=== PATIENT | male | born 1990 | race Caucasian/White ===

== ENCOUNTER 2024-10-17 11:12 | Observation (INO) | payer OTHER ==
[~2024-10-17] VITALS: Ht 172.7 cm; Wt 178.7 kg
[2024-10-17 11:33] VITALS: BP 152/80
[2024-10-17 12:29] LABS: BASO # 0.1 10*3/uL (0.0-0.1); BASO % 0.6 % (0.0-1.0); EOS # 0.4 10*3/uL (0.0-0.4); EOS % 4.7 % (1.0-4.0); MEAN CELL VOLUME 90.5 fl (80.0-94.0); MEAN CORPUSCULAR HGB 28.8 pg (27.0-31.0); MEAN CORPUSCULAR HGB CONC 31.9 g/dl (33.0-37.0); MEAN PLATELET VOLUME 9.4 fl (9.6-12.3); MONO # 0.9 10*3/uL (0.1-1.0); MONO % 9.2 % (3.0-9.0); NEUT # 6.5 10*3/uL (2.3-7.9); NEUT % 69.6 % (47.0-73.0); PLATELET COUNT AUTOMATED 220 10*3/uL (130-400); RED BLOOD COUNT 4.75 10*6/uL (4.50-5.90); RED CELL DISTRI WIDTH 12.6 % (0-14.5); WHITE BLOOD COUNT 9.4 10*3/uL (4.8-10.8)
[2024-10-17] MEDS ORDERED: HEPARIN SODIUM 250 ML IV SCH ×2 (13:05→13:15)
[2024-10-17 13:10] LABS: BUN 12 mg/dl (9-23); CHLORIDE 102 mmol/L (98-107); POTASSIUM 4.1 mmol/L (3.4-5.1)
[2024-10-17] MEDS ORDERED: Magnesium Hydroxide 30 ML UDC PO PRN (13:50)
[2024-10-17] MEDS ORDERED: BISACODYL 10 MG SUPP R PRN (13:50)
[2024-10-17] MEDS ORDERED: Ondansetron Hydrochloride 4 MG/2 ML VIAL IV PRN (13:50)
[2024-10-17] MEDS ORDERED: ACETAMINOPHEN 325 MG TAB PO PRN (13:50)
[2024-10-17] MEDS ORDERED: BISACODYL 5 MG TAB PO PRN (13:50)
[2024-10-17] MEDS ORDERED: ACETAMINOPHEN 650 MG SUPP R PRN (13:50)
[2024-10-17] MEDS ORDERED: SODIUM CHLORIDE 0.9% 100 ML BAG IV ONE (14:25)
[2024-10-17] MEDS ORDERED: IOHEXOL 350 MG/ML 100 ML VIAL IV ONE (14:25)
[2024-10-17 16:21] VITALS: BP 124/34
[2024-10-17 18:11] VITALS: BP 140/72
[2024-10-17 20:16] VITALS: BP 127/41
[2024-10-17 22:47] VITALS: BP 151/72
[2024-10-18 02:24] LABS: BASO # 0.1 10*3/uL (0.0-0.1); BASO % 0.7 % (0.0-1.0); EOS # 0.5 10*3/uL (0.0-0.4); EOS % 6.3 % (1.0-4.0); MEAN CELL VOLUME 90.1 fl (80.0-94.0); MEAN CORPUSCULAR HGB 29.1 pg (27.0-31.0); MEAN CORPUSCULAR HGB CONC 32.3 g/dl (33.0-37.0); MEAN PLATELET VOLUME 9.3 fl (9.6-12.3); MONO # 0.7 10*3/uL (0.1-1.0); MONO % 9.5 % (3.0-9.0); NEUT # 4.2 10*3/uL (2.3-7.9); NEUT % 55.5 % (47.0-73.0); PLATELET COUNT AUTOMATED 194 10*3/uL (130-400); RED BLOOD COUNT 4.33 10*6/uL (4.50-5.90); RED CELL DISTRI WIDTH 12.5 % (0-14.5); WHITE BLOOD COUNT 7.6 10*3/uL (4.8-10.8)
[2024-10-18 03:17] LABS: ALKALINE PHOSPHATASE 86 U/L (46-116); BUN 12 mg/dl (9-23); CHLORIDE 102 mmol/L (98-107); CHOLESTEROL 157 mg/dL (<200); LDL CHOLESTEROL 110 mg/dL (9-159); POTASSIUM 3.9 mmol/L (3.4-5.1); SGPT/ALT 29 U/L (5-49); TOTAL PROTEIN 6.9 gm/dL (6.0-8.0); TRIGLYCERIDES 88 mg/dl (<150)
[2024-10-18 06:37] LABS: VITAMIN D, 25-HYDROXY 6.7 ng/mL (30-100)
[2024-10-18 08:00] VITALS: BP 139/75
[2024-10-18 12:00] VITALS: BP 141/66
[2024-10-18 14:06] LABS: ANTI-THROMBIN III ANTIGEN 65 % (72-124); PROTEIN S, FREE 113 % (61-136); PROTEIN S, TOTAL 85 % (60-150)
[2024-10-18 15:06] LABS: ANTICARDIOLIPIN AB, IGG, QN <9 GPL U/mL (0-14); ANTICARDIOLIPIN AB, IGM, QN <9 MPL U/mL (0-12); CARDIOLIPIN AB IGA <9 APL U/mL (0-11)
[2024-10-18 16:00] VITALS: BP 176/80
[2024-10-18 16:06] LABS: DVVTMIXRFX CHG (NP); HEXAGONAL PHASE PHOSPHOLIPID 5 sec (0-11); LUPUS DRVVT 65.5 sec (0.0-47.0); LUPUS REFLEX INTERPRETATION Comment: (.); PTT-LA 46.6 sec (0.0-43.5); PTT-LA MIX 42.1 sec (0.0-40.5)
[2024-10-18 20:00] VITALS: BP 157/68
[2024-10-19] VITALS: BP 155/83
[2024-10-19 05:48] LABS: BUN 13 mg/dl (9-23); CHLORIDE 103 mmol/L (98-107); POTASSIUM 3.9 mmol/L (3.4-5.1)
[2024-10-19 06:06] LABS: BASO # 0.1 10*3/uL (0.0-0.1); BASO % 0.6 % (0.0-1.0); EOS # 0.5 10*3/uL (0.0-0.4); EOS % 6.1 % (1.0-4.0); HEMATOCRIT 40.7 % (42.0-52.0); MEAN CELL VOLUME 91.5 fl (80.0-94.0); MEAN CORPUSCULAR HGB 29.4 pg (27.0-31.0); MEAN CORPUSCULAR HGB CONC 32.2 g/dl (33.0-37.0); MEAN PLATELET VOLUME 10.4 fl (9.6-12.3); MONO # 0.8 10*3/uL (0.1-1.0); MONO % 9.8 % (3.0-9.0); NEUT # 5.1 10*3/uL (2.3-7.9); NEUT % 61.5 % (47.0-73.0); PLATELET COUNT AUTOMATED 228 10*3/uL (130-400); RED BLOOD COUNT 4.45 10*6/uL (4.50-5.90); RED CELL DISTRI WIDTH 12.4 % (0-14.5); WHITE BLOOD COUNT 8.3 10*3/uL (4.8-10.8)
[2024-10-19 07:06] LABS: PROTEIN C, ANTIGEN 74 % (60-150)
[2024-10-19 08:00] VITALS: BP 136/62
[2024-10-19] MEDS ORDERED: Cholecalciferol 2,000 UNIT TABLET (50 MCG) PO SCH (10:00)
[2024-10-19 12:00] VITALS: BP 125/52
[2024-10-19] MEDS ORDERED: ELIQUIS5 M1 PO ×2 (12:18→13:32)
[2024-10-19] MEDS ORDERED: VITAMIN D350 MCG PO (12:18)
== END 2024-10-19 14:15 | disposition home or self-care (01) ==
LOC: ED 11:12 → 4E 13:23 → EDHOLD 13:23 → 4E 22:30
PROVIDERS: Nurse Practitioner Family; Student in an Organized Health Care Education/Training Program; ADMIT Student in an Organized Health Care Education/Training Program; ATTEND Student in an Organized Health Care Education/Training Program
DX: I82.412 Acute embolism and thrombosis of left femoral vein (principal); D64.9 Anemia, unspecified; I10 Essential (primary) hypertension; K21.9 Gastro-esophageal reflux disease without esophagitis; E66.9 Obesity, unspecified; Z68.43 Body mass index [BMI] 50.0-59.9, adult; I26.99 Other pulmonary embolism without acute cor pulmonale; R06.02 Shortness of breath; Z79.899 Other long term (current) drug therapy